=== PATIENT | male | born 1980 | race Hispanic/Latino ===

== ENCOUNTER 2016-05-15 01:49 | Emergency (ER) | payer SELFPAY ==
[~2016-05-15] VITALS: Ht 167.6 cm; Wt 90.9 kg
[2016-05-15 01:52] VITALS: BP 120/73; PULSE 110; RESP 20; O2SAT 96
--- NOTE | 2016-05-15 01:58 | ED.REPORT ---
[id number] Illness Date of Service May 15, 2016 ED Provider: Orion Monahan MD Patient is a healthy 35 year old male who presents to the ED due to 4 days of flu-like symptoms. Associated symptoms include fever, chills, headache, ear pain , back pain, sore throat, nasal congestion, cough, pleuritic pain, nausea, and vomiting. Patient is presenting to the ED tonight because he due to increased difficulty breathing. Patient states that his mouth tastes bad and he last vomited just prior to arrival. Patient denies diarrhea. He is febrile in the ED at 39.6C. Patient did not receive his seasonal influenza shot this year. Nursing Notes Stated Complaint: FLU SYMPTOMS Chief Complaint: FLU/Cold Symptoms Nursing Notes Reviewed: Yes Allergies: Coded Allergies: No Known Allergies (Unverified , 05/15/16) General Time Seen by Provider: 01:59 Chief Complaint Cough, Fever, Upper resp infection Hx Obtained From: Patient Arrived By: Walk-in Onset Occurred: 4 days ago Symptom Duration: Since onset Progression Since Onset: Gradually worsening Location: : Head Quality: Painful Severity: Current: Moderate Severity: Maximum: Moderate Context: Immunization Status Immunizations Not Up to Date: Seasonal influenza Recent Healthcare: No recent doctor visit, No recent hospitalization Similar Sx Previous: No Past Medical History Past Medical History Healthy Denies: Coronary artery disease, Diabetes mellitus, Hypertension Past Surgical History none Smoking History Unknown if Ever Smoker Social History Alcohol Use: In recovery Other Social History: Good social support, Local resident Ambulatory Status Independent Review of Systems Constitutional: Reports: Chills, Fever Ears / Nose / Throat: Reports: Earache bilateral, Nasal congestion, Sore throat Respiratory: Reports: Non-productive cough, Pleuritic pain, Shortness of breath GI: Reports: Nausea, Vomiting, Denies: Diarrhea Musculoskeletal: Reports: Back pain Neurologic: Reports: Headache Complete sys rev & neg: except as marked. Physical Exam Initial Vital Signs Vital Signs (First) Date Time Temp Pulse Resp B/P Pulse Ox O2 Delivery O2 Flow Rate FiO2 05/15/16 01:52 39.6 110 20 120/73 96 Room Air Initial VS: Reviewed, Vital signs abnormal Extremities: Vascular intact, Neuro intact Psychiatric: Mood/affect normal, Behavior normal, Normal thought content General/Constitutional: Awake, Alert, Well hydrated appears miserable Neck: Supple, Non-tender Respiratory / Chest: Breath sounds NL, Breath sounds = bilat, No respiratory distress, No rales, No rhonchi, No wheezing Cardiovascular: Heart rate NL, Regular rhythm, Heart sounds NL, No murmurs Skin: No rash, Warm, Dry Neurologic: Oriented X3, Speech NL, No motor deficits, No sensory deficits Head / Eyes: Normocephalic, PERRL, Conjunctiva NL ENT: Airway patent, Mucous membranes moist, Tympanic membs NL Pharynx / Tonsils / Uvula: Positive: Pharyngeal erythema (mild), Negative: Tonsillar exudate L, Tonsillar exudate R, Tonsillar swelling L, Tonsillar swelling R Abdomen: Soft, Non-tender Interpretation & Diagnostics Interpretation & Diagnostics: POSITIVE FOR FLU A NEGATIVE FOR FLU B Lab Results Interpretation Result Diagram: 05/15/1620905/15/16209 Test 05/15/16 02:10 05/15/16 03:35 White Blood Count 4.4th/mm3 (3.8-10.1) Red Blood Count 5.08mil/mm3 (4.40-5.80) Hemoglobin 14.8g/dL (13.8-17.2) Hematocrit 43.6% (41.0-50.0) Mean Corpuscular Volume 85.8fL (81-100) Mean Corpuscular Hemoglobin 29.1pg (27.0-35.0) Mean Corpuscular Hemoglobin Concent 33.9% (32.0-37.0) Red Cell Distribution Width 12.9% (12.3-15.4) Platelet Count 116bil/L (150-400) Neutrophils (%) (Auto) 62.2% (40-74) Lymphocytes (%) (Auto) 26.0% (14-46) Monocytes (%) (Auto) 11.8% (4-12) Eosinophils (%) (Auto) 0% (0-5) Basophils (%) (Auto) 0% (0-3) Sodium Level 135mEq/L (134-144) Potassium Level 3.5mEq/L (3.5-5.2) Chloride Level 98mEq/L (97-108) Carbon Dioxide Level 24mmol/L (18-29) Blood Urea Nitrogen 10mg/dL (6-20) Creatinine 1.03mg/dL (0.76-1.27) Estimat Glomerular Filtration Rate 86mL/min (>59) Glucose Level 106mg/dL (60-99) Calcium Level 8.2mg/dL (8.5-10.1) Magnesium Level 1.9mg/dL (1.6-2.6) Total Bilirubin 1.0mg/dL (0.0-1.2) Aspartate Amino Transf (AST/SGOT) 47U/L (0-50) Alanine Aminotransferase (ALT/SGPT) 37U/L (0-44) Alkaline Phosphatase 94U/L (25-150) Total Protein 7.0g/dL (6.4-8.4) Albumin 3.9g/dL (3.4-5.0) Hold [place] Top Tube Received (Received) Hold Urine Received (Received) Lab values outside NL range: no clinical significance. Lab Results Interpretation: Except positive for influenza A ECG Interpretation Time: 03:59 Interpreted by: ED physician Normal ECG Interpretation: Normal ECG w/ rate of... (90), No acute ischemic changes X-Ray Chest Interpretation Chest Xray Interpretation: Impression: No acute cardiopulmonary process. View: AP & lat Interpretation / Wet Read by: Wet read ED physician Re-Evaluation & MDM Med Decision/Clinical Course Uncomplicated influenza A with no evidence of pneumonia. It is too late in the course of the disease to treat effectively with Tamiflu. Re-Evaluation/Progress #1: Time of Eval: 03:45 Patient Status: Condition improved Re-Evaluation/Progress Note: Rechecked the patient, who was informed that he has influenza. Tamiflu not indicated at this time. No lab abnormalities. Will order chest x-ray. Re-Evaluation/Progress #2: Time of Eval: 04:35 Patient Status: Condition improved Re-Evaluation/Progress Note: X-ray and EKG were negative. Patient understands and agrees with the plan to be discharged home. Discharge instructions and follow-up discussed. All questions were addressed. Return to the ED warnings given. Counseled Regarding: Diagnosis, Lab results, Need for follow-up, When/why to return to ED Patient Discharge & Departure Impression: Primary Impression: Influenza due to influenza A virus Disposition: Home Discharge Condition All VS Reviewed: Yes Condition: Stable Patient Instructions: Influenza (ED) Additional Instructions: You have influenza A. Contacts in your house need to be immunized. The medication for influenza (Tamiflu) only helps if it is given in the first couple of days of the illness. Tylenol and/or ibuprofen as needed for discomfort. Drink plenty of fluids. Get plenty of rest. Follow-up with your doctor if you have further problems. There is no evidence of an pneumonia or heart problems. Referrals: [facility] Scribe Attestation Portions of this note were transcribed by Digna Zavaleta. I, Dr. Monahan personally performed the history, physical exam and medical decision-making; I reviewed and confirmed the accuracy of the information in the transcribed note. Signed by: Diallo West, 05/15/2016 0435 Orion Monahan MD May 15, 2016 01:57 Digna Zavaleta May 15, 2016 02:05
[2016-05-15] MEDS ORDERED: 0.9% Sodium Chloride 1,000 ML IV ONE (02:03)
[2016-05-15] MEDS ORDERED: Ondansetron 2 mg/mL 2 mL Inj IV PRN (02:05)
[2016-05-15] MEDS ORDERED: Ketorolac 15 mg/mL Inj IV ONE (02:05)
[2016-05-15 02:26] LABS: BASOPHILS % (AUTO) 0 % (0-3); EOSINOPHILS % (AUTO) 0 % (0-5); MONOCYTES % (AUTO) 11.8 % (4-12); Mean Corpuscular Hemoglobin 29.1 pg (27.0-35.0); Mean Corpuscular Volume 85.8 fL (81-100); NEUTROPHILS % (AUTO) 62.2 % (40-74); Platelet Count 116 bil/L (150-400)
[2016-05-15 02:56] LABS: Magnesium 1.9 mg/dL (1.6-2.6)
[2016-05-15 04:44] VITALS: BP 101/61; PULSE 90; RESP 20; O2SAT 94
--- NOTE | 2016-05-15 08:22 | DRSVH ---
PROCEDURE: X-RAY CHEST, TWO VIEWS ([id number]) INDICATIONS: chest tightness, flu A TECHNIQUE: 2 views of the chest were acquired. COMPARISON: RG, CHEST 2VW, 01/03/2005, 16:59. FINDINGS: Surgical changes and devices: None. Lungs and pleura: No pleural effusions or pneumothorax. There are low lung volumes with slightly in creased medial right retrocardiac opacities. Mediastinum: Mediastinal contours are normal. Heart size is normal. Bones and chest wall: No suspicious bony abnormalities. Soft tissues appear unremarkable. IMPRESSION: 1. Slightly increased medial right retrocardiac opacities compatible with developing consolidation o r atelectasis. Dictated by: Wesley Heck M.D. on 05/15/2016 at 8:18 Approved by: Wesley Heck M.D. on 05/15/2016 at 8:20
== END 2016-05-15 04:45 | disposition home or self-care (01) ==
LOC: SED 01:49
DX: J10.1 Influenza due to other identified influenza virus with other respiratory manifestations (principal); R50.9 Fever, unspecified; R51 Headache; H92.09 Otalgia, unspecified ear; M54.9 Dorsalgia, unspecified; J02.9 Acute pharyngitis, unspecified; R05 Cough; R07.81 Pleurodynia; R11.2 Nausea with vomiting, unspecified
CPT/HCPCS: 36415; 71020; 80053; 83735; 85025; 87804; 93005; 96361; 96374; 96375; 99285; J1885; J2405; J7030